=== PATIENT | male | born 1975 | race Hispanic/Latino ===

== ENCOUNTER 2023-05-19 05:45 | Day surgery (SDC) | payer OTHER ==
[2023-05-14 10:48] VITALS: BP 141/90
[~2023-05-19] VITALS: Ht 180.3 cm; Wt 84.0 kg
[2023-05-19 06:01] VITALS: BP 136/81
--- NOTE | 2023-05-19 09:00 | NUR ---
05/19/23 0900 Harriet Dunbar PT TO PACU SLEEPING ORAL AIRWAY IN PLACE O2 VIA MASK. FOGGING NOTED IN MASK.
[2023-05-19] MEDS ORDERED: OXYCODON-ACETA1 EAC2 PO (09:15)
[2023-05-19] MEDS ORDERED: IBUPROFEN600 MG PO (09:15)
[2023-05-19] MEDS ORDERED: ACETAMINOPHEN500 MG PO (09:16)
[2023-05-19 09:34] VITALS: BP 107/49
--- NOTE | 2023-05-19 09:45 | NUR ---
PT ARRIVES TO UNIT VIA STRETCHER FROM PACU. PT IS DROWSY, BUT ORIENTED AND ASKING QUESTIONS APPROPRIATELY. PT REPORTS NO PAIN, NAUSEA, DIZZINESS, N/T, OR SOB AT THIS TIME. PT ON RA W/O2 >90% AT THIS TIME VIA PULSE OX. REPORT RECEIVED FROM JUANITA ACKERMAN W/ AND SON AT BEDSIDE. DRESSING HAS SMALL AMOUNT OF SS DRAINAGE AT BOTTOM OF DRESSING. PT TOLERATING CRACKERS AND JELLO AT THIS TIME W/OUT DIFFICULTY SWALLOWING. VS TAKEN. PT REPORTS NO FURTHER NEEDS OR QUESTIONS AT THIS TIME. CALL LIGHT WITHIN REACH.
--- NOTE | 2023-05-19 10:32 | OR ---
[facility] [address], [place] [address] Signed DATE OF OPERATION: 05/19/2023 SURGEON: Charis Walker MD PREOPERATIVE DIAGNOSIS: Incarcerated supraumbilical hernia. POSTOPERATIVE DIAGNOSIS: Incarcerated supraumbilical hernia, incarcerated omentum, nonreducible. PROCEDURES: 1. Repair of supraumbilical hernia. 2. Implantation of Prolene mesh underlay technique. 3. Excision of portion of omentum. ANESTHESIA: General LMA, Florin Beckford, TAX CLERK and local 10 mL of 0.25% Marcaine with epinephrine. INDICATION: This 47-year-old man is a patient of MARISOL Caldwell. He lives in [place]. I last saw him in 2019. 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 He was seen by me for what was presumed an umbilical hernia in 2019. The hernia was incarcerated at that time but he declined proceeding with repair. Close inspection showed it to be a supraumbilical hernia which is completely nonreducible. There does not appear likely to be hollow viscus incarceration, however. He has had increasing pain upon straining in his work. He is at this time to undergo repair of the hernia. He understands the risk of bleeding, infection, recurrence and so on. FINDINGS: The defect was indeed a supraumbilical hernia with transverse fascial defect noted. Incarcerated omentum was noted. It was chronically inflamed and was excised as it could not be reduced given its fibrotic nature. The properitoneal space was developed and a small amount of mesh was implanted in the properitoneal space allowing for additional fibrosis to occur with transverse reapproximation of the fascia. There were no complications. DESCRIPTION OF PROCEDURE: The patient was brought to the operating room, given a general LMA type anesthetic. Preoperative antibiotic Ancef was given. Sequential compression device stockings were Electronically Signed By: CHARIS WALKER MD 05/19/23 1032 PATIENT NAME: JEM FLORES OPERATIVE REPORT DATE OF : 71 REPORT #: [id number] PHYSICIAN: CHARIS WALKER MD PCP: FREIDA VAZQUEZ REPORT IS CONFIDENTIAL AND NOT TO BE RELEASED WITHOUT AUTHORIZATION [facility] [address], [place] [address] Signed used and heparin subcutaneously administered. The abdomen was clipped and prepared with a chlorhexidine solution and draped sterilely. A vertical incision was made over the nonreducible soft tissue mass cephalad to the umbilicus. Dissection was carried through the dermis and subcutaneous tissue and eventually encountered was a firm round fibrotic piece of fat, most consistent with incarcerated omentum. Complete dissection of the soft tissue around the mass was undertaken showing a transverse fascial defect. Efforts to reduce the mass were unsuccessful and therefore, it was excised completely. It was omentum. The vascular pedicles were well secured with 2-0 Vicryl sutures. The properitoneal space was developed using blunt and electrocautery dissection. Good farah fascia was noted. The hernia sac defect was reapproximated with 2-0 Vicryl suture. A small segment of mesh was cut to an elliptical configuration and secured in the properitoneal space with interrupted 0 Prolene suture. The fascia was then reapproximated with interrupted 0 Prolene suture in a vertical mattress configuration. 10 mL of 0.25% Marcaine with epinephrine was injected locally. Scarpas layer was reapproximated with interrupted 3-0 Vicryl and skin closed with running subcuticular 3-0 Vicryl. Steri-Strips were applied as was an Acticoat dressing. The patient was ultimately extubated and transferred to the recovery room in good condition having suffered no complications. Sponge, needle, and instrument counts were reported as correct x3. MD SAMM Katz/MODL /[id number] cc: MARISOL Caldwell Copies: FREIDA VAZQUEZ ~ Electronically Signed By: CHARIS WALKER MD 05/19/23 1032 PATIENT NAME: JEM FLORES OPERATIVE REPORT DATE OF : 71 REPORT #: [id number] PHYSICIAN: CHARIS WALKER MD PCP: FREIDA VAZQUEZ REPORT IS CONFIDENTIAL AND NOT TO BE RELEASED WITHOUT AUTHORIZATION
[2023-05-19 10:46] VITALS: BP 116/65
--- NOTE | 2023-05-19 10:50 | NUR ---
IN PT ROOM FOR VS AND ASSESSMENT. PT REPORTS PAIN IS .5/10 AT THIS TIME AND STATES NO NEED FOR PRN MED AT THIS TIME. PT REPORTS NO NAUSEA, DIZZINESS, N/T, OR SOB. DRESSING HAS SMALL AMOUNT OF SS DRAINAGE AT BOTTOM OF DRESSING. PT REMAINS ON RA W/O2 SATS >90% VIA PULSE OX. MORE CRACKERS AND ICE WATER PROVIDED. IV SALINE LOCKED AT THIS TIME. PT REPORTS NO NEED TO URINE VOID AT THIS TIME, PT ENCOURAGED TO DRINK ORAL FLUIDS, PT STATES VERBAL UNDERSTANDING. CALL LIGHT WITHIN REACH, NO FURTHER NEEDS AT THIS TIME.
--- NOTE | 2023-05-19 11:20 | NUR ---
IN PT ROOM FOR ASSESSMENT. PT REPORTS NEED TO URINE VOID AT THIS TIME. PT UP TO BATHROOM VIA STANDBY ASSIST, AT PT SIDE. PT VOIDS 175 ML OF URINE AT THIS TIME. PT REPORTS NO NAUSEA OR DIZZINESS W/AMBULATION, GAIT IS STEADY. PT GETTING DRESSED W/ ASSISTANCE AT THIS TIME. CALL LIGHT WITHIN REACH, NO FURTHER NEEDS AT THIS TIME.
[2023-05-19 11:50] VITALS: BP 119/63
--- NOTE | 2023-05-19 11:55 | NUR ---
IN PT ROOM FOR DISCHARGE EDUCATION, PT AND PT FAMILY STATE VERBAL UNDERSTANDING AND ALL QUESTIONS ANSWERED AT THIS TIME. IV DC'ED, WNL, GAUZE AND COBAN IN PLACE. CRACKERS, EMESIS BAG, ICE WATER SENT HOME W/PT AT HIS REQUEST. PT OFF OF UNIT VIA WC TO PASSENGER SIDE OF SON'S VEHICLE. PT REPORTS NO FURTHER QUESTIONS OR NEEDS AT THIS TIME. ALL BELONGINGS IN PT POSSESSION AT THIS TIME.
== END 2023-05-19 11:55 | disposition home or self-care (01) ==
LOC: DS 05:45
PROVIDERS: ATTEND Surgery
PROC: 0WUF0JZ Supplement Abdominal Wall with Synthetic Substitute, Open Approach (ICD-10-PCS; principal; 2023-05-19 07:30)
DX: K43.6 Other and unspecified ventral hernia with obstruction, without gangrene (principal)
CPT/HCPCS: 00750; C1781; J0131; J0690; J1100; J1644; J1885; J2001; J2405; J2704; J3010; J7121